=== PATIENT | female | born 1970 | race Caucasian/White ===

== ENCOUNTER 2024-07-30 14:34 | Outpatient (OUT) | payer OTHER, SELFPAY | END 2024-07-30 14:35 | disposition home or self-care (01) | LOC: PST 14:34 | PROVIDERS: Visit Provider Surgery | DX: Z01.818 Encounter for other preprocedural examination (principal); Z12.11 Encounter for screening for malignant neoplasm of colon ==

== ENCOUNTER 2024-08-07 06:34 | Day surgery (SDC) | payer OTHER, SELFPAY ==
--- OUTSIDE RECORDS SUMMARY | 2024-08-07 06:40 | XMS_ITS | CCD ---
Author Organization [facility] Inform ion Partnership [facility] Care Team Providers Care Slackline Operator Name Role Phone Shade Gregg Primary Care Provider VIKKI DAVIDSON Referring Unavailable SHADE GREGG Primary Care Unavailable VIKKI DAVIDSON Referring Unavailable SHADE GREGG Primary Care Unavailable SHADE GREGG Referring Unavailable MARYSOL, SHADE Primary Care Unavailable SHADE GREGG E Attending Unavailable SHADE GREGG E Attending Unavailable SHADE GREGG E Attending Unavailable Medications Current Medications Medication Drug Class(es) Dates Sig (Normalized) Sig (Original) benzonatate 100 mg oral capsule (11 sources) Non-narcotic Antitussive take 1 capsule by mouth three times daily as needed for cough benzonatate (TESSALON) 100 MG capsule Take 100 mg by mouth 3 times daily as needed for Cough 0 Active famotidine 20 mg oral tablet (1 source) Histamine-2 Receptor Antagonist Start: 09-24-2019 take 1 tablet by mouth once daily famotidine (PEPCID) 20 MG tablet Take 1 tablet by mouth nightly 0 09/24/2019 Active ferrous gluconate 324 mg oral tablet (1 source) Start: 02-06-2024 take 1 tablet by mouth once daily at breakfast ferrous gluconate (FERGON) 324 (38 Fe) MG tablet Take 1 tablet by mouth daily (with breakfast) 0 02/06/2024 Active ferrous sulfate 325 mg oral tablet (11 sources) Start: 08-10-2019 Ferrous Sulfate (IRON) 325 (65 Fe) MG TABS fluvoxaMINE maleate 25 mg oral tablet (11 sources) Serotonin Reuptake Inhibitor take 1 tablet by mouth once daily fluvoxaMINE (LUVOX) 25 MG tablet Take 1 tablet by mouth daily 0 Active hydroCHLOROthiazide 25 mg / losartan potassium 100 mg oral tablet (11 sources) Thiazide Diuretic, Angiotensin 2 Receptor Jasiel take 1 tablet by mouth once daily losartan-hydrochl orothiazide (HYZAAR) 100-25 MG per tablet Take 1 tablet by mouth daily 0 Active levothyroxine sodium 0.05 mg oral tablet (1 source) l-Thyroxine Start: 02-02-2024 take 1 tablet by mouth once daily before breakfast levothyroxine (SYNTHROID) 50 MCG tablet Take 1 tablet by mouth every morning (before breakfast) 0 02/02/2024 Active losartan potassium 50 mg oral tablet (1 source) Angiotensin 2 Receptor Jasiel take 1 tablet by mouth once daily losartan (COZAAR) 50 MG tablet Take 1 tablet by mouth daily 0 Active meclizine hydrochloride 25 mg chewable tablet (1 source) Antiemetic Start: 06-14-2023 take 1 tablet by mouth twice daily as needed meclizine (ANTIVERT) 25 MG CHEW Take 1 tablet by mouth 2 times daily as needed 0 06/14/2023 Active meloxicam 15 mg oral tablet (1 source) Nonsteroidal Anti-inflammatory Drug Start: 02-02-2024 End: 02-01-2025 take 1 tablet by mouth once daily meloxicam (MOBIC) 15 MG tablet Take 1 tablet by mouth daily 0 02/02/2024 02/01/2025 Active omeprazole 20 mg delayed release oral capsule (11 sources) Proton Pump Inhibitor take 1 capsule by mouth once daily omeprazole (PRILOSEC) 20 MG delayed release capsule Take 1 capsule by mouth Daily 0 Active raNITIdine 150 mg oral tablet (11 sources) Histamine-2 Receptor Antagonist take 1 tablet by mouth once daily ranitidine (RANITIDINE 150 MAX STRENGTH) 150 MG tablet Take 1 tablet by mouth nightly 0 Active sertraline 50 mg oral tablet (2 sources) Serotonin Reuptake Inhibitor Start: 02-02-2024 End: 02-01-2025 take 1 tablet by mouth once daily sertraline (ZOLOFT) 50 MG tablet Take 1 tablet by mouth daily 0 02/02/2024 02/01/2025 Active Problems Active Problems Problem Classification Problem Date Documented Da te Episodic/Chronic Genitourinary symptoms and ill-defined conditions (11 sources) Urge incontinence of urine; Translations: [Urge incontinence] Onset: 08-28-2019 08-28-2019 Chronic Other connective tissue disease (1 source) Pain of bilateral hands; Translations: [Pain in right hand] Episodic Other non-traumatic joint disorders (2 sources) Pain in right knee; Translations: [Other acute pain] Episodic Other screening for suspected conditions (not mental disorders or infectious disease) (12 sources) Patient encounter status; Translations: [Encounter for screening for malignant neoplasm of colon] Onset: 11-10-2018 Resolved: 01-09-2019 01-09-2019 Episodic Residual codes; unclassified (1 source) Menopause present; Translations: [Asymptomatic menopausal state] Episodic Spondylosis; intervertebral disc disorders; other back problems (1 source) Neck pain; Translations: [Cervicalgia] Episodic Unclassified (3 sources) Patient encounter status; Translations: [Colon cancer screening] Onset: 11-10-2018 Resolved: 01-09-2019 01-09-2019 Past or Other Problems Problem Classification Problem Date Documented Da te Episodic/Chronic Genitourinary symptoms and ill-defined conditions (20 sources) Microscopic hematuria; Translations: [Blood in urine] Onset: 08-21-2019 08-21-2019 Episodic Other gastrointestinal disorders (1 source) Flatulence; Translations: [Flatulence] Onset: 02-10-2024 Episodic Other gastrointestinal disorders (1 source) Gas pain; Translations: [Gas pain] Onset: 02-10-2024 Episodic Other gastrointestinal disorders (1 source) Eructation; Translations: [Eructation] Onset: 02-10-2024 Episodic Residual codes; unclassified (11 sources) Family history of cancer of colon; Translations: [Family history of malignant neoplasm of digestive organs] Onset: 11-10-2018 12-10-2018 Episodic Results Test Name Value Interpretation Reference Range Facility EKG 12 LeadOrdered By: Indra Devries ad on 05-22-2024 Atrial Rate 76 BPM [email or web address] Phone: P [place] 61 degrees [email or web address] Phone: P-R Interval 144 ms [email or web address] Phone: Q-T Interval 386 ms [email or web address] Phone: QRS Duration 86 ms [email or web address] Phone: QTc Calculation (Bazett) 434 ms [email or web address] Phone: R [place] 13 degrees [facility] Work Phone: T [place] 48 degrees MARY GRACE A [employer] Work Phone: Ventricular Rate 76 BPM MARY GRACE GUTIERREZ [employer] Work Phone: MARY GRACE APARICIO [employer] Work Phone: EKG 12 Leadon 05-22-2024 Normal sinus rhythm Low voltage QRS Cannot rule out Anterior infarct , age undetermined Abnormal ECG No previous ECGs available Confirmed by Indra Villalobos MD ([id number]) on 05/22/2024 1:26:33 PM [facility] Indra Villalobos MD - 05/22/2024 Normal sinus rhythm Low voltage QRS Cannot rule out Anterior infarct , age undetermined Abnormal ECG No previous ECGs available Confirmed by Indra Villalobos MD ([id number]) on 05/22/2024 1:26:33 PM [facility] DIGITAL SCREEN BILA Guille 05-22-2024 [facility] K[facility] DIGITAL SCREEN BILATERAL EXAMINATION: SCREENING DIGITAL BILATERAL MAMMOGRAM WITH TOMOSYNTHESIS, 05/22/2024 TECHNIQUE: Screening mammography was performed with tomosynthesis including MLO and CC views of the bilateral breasts. Computer aided detection was used for the interpretation of this exam. COMPARISON: 20 May 2023; 27 April 2022 HISTORY: Screening. Negative family history of breast cancer. No hormone replacement therapy or breast interventions. FINDINGS: Both breasts are composed of scattered fibroglandular density. No skin thickening, nipple contour changes, suspicious calcifications, suspicious masses, areas of architectural distortion or significant interval changes are noted. Stable benign fairly widely distributed calcifications are noted in both breasts. IMPRESSION: No evidence of malignancy. Advise annual screening mammography. BI-RADS 2 BIRADS: BIRADS - CATEGORY 2 Benign Findings. Normal interval follow-up is recommended in 12 months. OVERALL ASSESSMENT - BENIGN A letter of notification will be sent to the patient regarding the results. [employer] recommends annual mammograms for women 40 years and older. Interpreted by: Angi Rico MD Signed by: Angi Rico MD 05/22/24 Final result Normal [facility] H. pylori Antigenon 02-11-20 H. pylori Antigen Specimen Description .FECES Direct Exam NEGATIVE Report Status FINAL 02/11/2024 Normal [facility] Comment on above: Performed By: #### F HPY #### [facility] [address] [place] [address] Respiratory Therapy Director: Xiang Mrcae MD [facility] [address] [place] [address] Respiratory Therapy Director: Jim Mccullough MD [facility] KIANNA DIGITAL SCREEN SELF REFERRAL W OR WO CAD BILATERALon 05-20-2023 No evidence of malignancy. Advise annual screening mammography. BI-RADS 2 BIRADS: BIRADS - CATEGORY 2 Benign Findings. Normal interval follow-up is recommended in 12 months. OVERALL ASSESSMENT - BENIGN A letter of notification will be sent to the patient regarding the results. [employer] recommends annual mammograms for women 40 years and older. [facility] EXAMINATION: SCREENING DIGITAL BILATERAL MAMMOGRAM WITH TOMOSYNTHESIS, 05/20/2023 TECHNIQUE: Screening mammography of the bilateral breasts was performed with tomosynthesis. 2D standard and 3D tomosynthesis combination imaging performed through both breasts in the MLO and CC projection. Computer aided detection was utilized in the interpretation of this exam. COMPARISON: 27 April 2022; 23 April 2021 HISTORY: Screening. Negative family history of breast cancer. No hormonal replacement therapy or breast interventions. FINDINGS: Breasts are composed of scattered fibroglandular density. No skin thickening, nipple contour changes, suspicious calcifications, suspicious masses, areas of architectural distortion or significant interval changes are noted. Stable benign-appearing calcifications are present in the breast. [facility] Radiology Study observation (narrative) [facility] KIANNA DIGITAL SCREEN SELF REFERRAL W OR WO CAD BILATERALOrdered By: Angi Rico on 05-20-2023 [facility] Work Phone: No Panel Informationon 12-10 Cervical spine: 1. Mild degenerative changes in the cervical spine. 2. No acute vertebral body height loss, subluxation, instability or malalignment. Right hand: 1. Mild osteoarthrosis. 2. No acute fracture or dislocation. Left hand: 1. No significant degenerative change. 2. No acute osseous abnormality. Right knee: 1. Small joint effusion. 2. Moderate to severe narrowing of the medial compartment. 3. No acute fracture or dislocation. Left knee: 1. Mild tricompartmental osteoarthrosis. Small joint effusion. 2. No acute fracture or dislocation. [facility] EXAMINATION: TWO XRAY VIEWS OF THE RIGHT HAND; THREE XRAY VIEWS OF THE RIGHT KNEE; THREE XRAY VIEWS OF THE LEFT KNEE; TWO XRAY VIEWS OF THE LEFT HAND; SEVEN XRAY VIEWS OF THE CERVICAL SPINE WITH OBLIQUES AND FLEXION/EXTENSION VIEWS 12/10/2022 11:33 am COMPARISON: None. HISTORY: ORDERING SYSTEM PROVIDED HISTORY: Bilateral hand pain 52-year-old female who complains of bilateral hand pain FINDINGS: Cervical spine: Cervical spine is imaged from the skull base to the inferior C6 vertebral body level on the standard lateral view. Mild disc space narrowing and hypertrophic osteophyte spurring at C4-C5. Mild multilevel facet arthrosis. Inferior C7 vertebral body appears grossly unremarkable on the additional lateral view. No prevertebral soft tissue swelling. No clear evidence for instability or subluxation on flexion extension imaging. No significant foraminal narrowing identified on oblique images. Odontoid appears intact. Lateral masses symmetric in appearance. Visualized ribs and lung apices grossly unremarkable. Right hand: Osseous alignment is normal. Mild degenerative change of the triscaphe and 1st CMC joints. No marginal erosions are identified. No acute fracture or gross dislocation is seen. No focal soft tissue swelling is evident. Left hand: Osseous alignment is normal. Joint spaces relatively well maintained. No marginal erosions are identified. No acute fracture or gross dislocation is seen. No focal soft tissue swelling is evident. Right knee: Small joint effusion. Osseous alignment is normal. Mild tricompartmental osteophyte spurring. Moderate to severe narrowing of the medial compartment. No acute fracture or gross dislocation is seen. No suspicious osteolytic or osteoblastic lesions are identified. Left knee: Small joint effusion. Osseous alignment is normal. Mild tricompartmental osteophyte spurring. No acute fracture or gross dislocation is seen. No suspicious osteolytic or osteoblastic lesions are identified. [facility] Jose Francisco Robertson MD - 12/10/2022 EXAMINATION: TWO XRAY VIEWS OF THE RIGHT HAND; THREE XRAY VIEWS OF THE RIGHT KNEE; THREE XRAY VIEWS OF THE LEFT KNEE; TWO XRAY VIEWS OF THE LEFT HAND; SEVEN XRAY VIEWS OF THE CERVICAL SPINE WITH OBLIQUES AND FLEXION/EXTENSION VIEWS 12/10/2022 11:33 am COMPARISON: None. HISTORY: ORDERING SYSTEM PROVIDED HISTORY: Bilateral hand pain 52-year-old female who complains of bilateral hand pain FINDINGS: Cervical spine: Cervical spine is imaged from the skull base to the inferior C6 vertebral body level on the standard lateral view. Mild disc space narrowing and hypertrophic osteophyte spurring at C4-C5. Mild multilevel facet arthrosis. Inferior C7 vertebral body appears grossly unremarkable on the additional lateral view. No prevertebral soft tissue swelling. No clear evidence for instability or subluxation on flexion extension imaging. No significant foraminal narrowing identified on oblique images. Odontoid appears intact. Lateral masses symmetric in appearance. Visualized ribs and lung apices grossly unremarkable. Right hand: Osseous alignment is normal. Mild degenerative change of the triscaphe and 1st CMC joints. No marginal erosions are identified. No acute fracture or gross dislocation is seen. No focal soft tissue swelling is evident. Left hand: Osseous alignment is normal. Joint spaces relatively well maintained. No marginal erosions are identified. No acute fracture or gross dislocation is seen. No focal soft tissue swelling is evident. Right knee: Small joint effusion. Osseous alignment is normal. Mild tricompartmental osteophyte spurring. Moderate to severe narrowing of the medial compartment. No acute fracture or gross dislocation is seen. No suspicious osteolytic or osteoblastic lesions are identified. Left knee: Small joint effusion. Osseous alignment is normal. Mild tricompartmental osteophyte spurring. No acute fracture or gross dislocation is seen. No suspicious osteolytic or osteoblastic lesions are identified. IMPRESSION: Cervical spine: 1. Mild degenerative changes in the cervical spine. 2. No acute vertebral body height loss, subluxation, instability or malalignment. Right hand: 1. Mild osteoarthrosis. 2. No acute fracture or dislocation. Left hand: 1. No significant degenerative change. 2. No acute osseous abnormality. Right knee: 1. Small joint effusion. 2. Moderate to severe narrowing of the medial compartment. 3. No acute fracture or dislocation. Left knee: 1. Mild tricompartmental osteoarthrosis. Small joint effusion. 2. No acute fracture or dislocation. [email or web address] Phone: Radiology Study observation (narrative) [email or web address] Phone: No Panel InformationOrdered By: Jose Francisco Robertson on 12-10-2022 [email or web address] Phone: XR CERVICAL SPINE W OBLIQUES FLEXION AND EXTENSIONon 12-10-2022 Radiology Study observation (narrative) [email or web address] Phone: XR KNEE RIGHT (3 VIEWS)on Radiology Study observation (narrative) [email or web address] Phone: [facility] KIANNA DIGITAL SCREEN BILA TERALon 04-27-2022 No mammographic evidence of malignancy BIRADS: BIRADS - CATEGORY 2 Benign Findings. Normal interval follow-up is recommended in 12 months. OVERALL ASSESSMENT - BENIGN A letter of notification will be sent to the patient regarding the results. [employer] recommends annual mammograms for women 40 years and older. [facility] EXAMINATION: SCREENING DIGITAL BILATERAL MAMMOGRAM WITH TOMOSYNTHESIS, 04/27/2022 TECHNIQUE: Screening mammography was performed with tomosynthesis including MLO and CC views of the bilateral breasts. Computer aided detection was used for the interpretation of this exam. COMPARISON: April 23, 2021 and April 02, 2020 HISTORY: Screening. FINDINGS: Breasts are composed of scattered fibroglandular density. There is no dominant mass, architectural distortion or concerning grouping of microcalcification in either breast. Benign-appearing calcifications are stable. [facility] Radiology Study observation (narrative) [email or web address] Phone: [facility] KIANNA DIGITAL SCREEN BILA TERALOrdered By: Rex Rogers on 04-27-2022 [email or web address] Phone: Complete Blood Count with Au to Diffon 12-07-2021 Basophils (Bld) [#/Vol] 0.03 10*3/uL Normal 0.00-0.20 [facility] Comment on above: Performed By: #### C BCAD, TSH reflex FT4, LIPD, CMP #### [facility] [address] [place], [place] [id number] Basophils/100 WBC (Bld) 0.6 % Normal [facility] Comment on above: Performed By: #### C BCAD, TSH reflex FT4, LIPD, CMP #### [facility] [address] [place], [place] [id number] Eosinophils (Bld) [#/Vol] 0.11 10*3/uL Normal 0.02-0.50 [facility] Specialist Comment on above: Performed By: #### C BCAD, TSH reflex FT4, LIPD, CMP #### [facility] [address] [place], [place] [id number] Eosinophils/100 WBC (Bld) 2.3 % Normal [facility] Special[facility] Comment on above: Performed By: #### C BCAD, TSH reflex FT4, LIPD, CMP #### [facility] [address] [place], [place] [id number] Erythrocyte distribution width (RBC) [Ratio] 13.6 % Normal 11.0-15.0 [facility] Comment on above: Performed By: #### C BCAD, TSH reflex FT4, LIPD, CMP #### [facility] [address] [place], [place] [id number] Hematocrit (Bld) [Volume fraction] 41.6 % Normal 35.0-47.0 [facility] Comment on above: Performed By: #### C BCAD, TSH reflex FT4, LIPD, CMP #### [facility] [address] [place], [place] [id number] Hemoglobin (Bld) [Mass/Vol] 13.4 g/dL Normal 11.6-15.5 [facility] Comment on above: Performed By: #### C BCAD, TSH reflex FT4, LIPD, CMP #### [facility] [address] [place], [place] [id number] Lymphocytes (Bld) [#/Vol] 1.2 10*3/uL Normal 0.9-3.9 [facility] Comment on above: Performed By: #### C BCAD, TSH reflex FT4, LIPD, CMP #### [facility] [address] [place], [place] [id number] Lymphocytes/100 WBC (Bld) 24.7 % Normal [facility] Specialist Comment on above: Performed By: #### C BCAD, TSH reflex FT4, LIPD, CMP #### [facility] [address], [place] [id number] MCH (RBC) [Entitic mass] 28.5 pg Normal 27.0-33.0 [facility] Comment on above: Performed By: #### C BCAD, TSH reflex FT4, LIPD, CMP #### [facility] [address], [place] [id number] MCHC (RBC) [Mass/Vol] 32.2 g/dL Normal 32.0-36.0 [facility] Comment on above: Performed By: #### C BCAD, TSH reflex FT4, LIPD, CMP #### [facility] [address] [place], [place] [id number] MCV (RBC) [Entitic vol] 89 fL Normal 80-100 [facility] Specialist Comment on above: Performed By: #### C BCAD, TSH reflex FT4, LIPD, CMP #### [facility] [address] [place], [place] [id number] Monocytes (Bld) [#/Vol] 0.5 10*3/uL Normal 0.2-0.9 [facility] Comment on above: Performed By: #### C BCAD, TSH reflex FT4, LIPD, CMP #### [facility] [address], [place] [id number] Monocytes/100 WBC (Bld) 10.5 % Normal [facility] Comment on above: Performed By: #### C BCAD, TSH reflex FT4, LIPD, CMP #### [facility] [address], [place] [id number] Neutrophils (Bld) [#/Vol] 3.0 10*3/uL Normal 1.5-7.8 [facility] Comment on above: Performed By: #### C BCAD, TSH reflex FT4, LIPD, CMP #### [facility] [address] [place], [place] [id number] Neutrophils/100 WBC (Bld) 61.9 % Normal [facility] Comment on above: Performed By: #### C BCAD, TSH reflex FT4, LIPD, CMP #### [facility] [address] [place], [place] [id number] Platelet mean volume (Bld) [Entitic vol] 9.50 fL Normal 7.50-12.50 [facility] Specialist Comment on above: Performed By: #### C BCAD, TSH reflex FT4, LIPD, CMP #### [facility] [address] [place], [place] [id number] Platelets (Bld) [#/Vol] 330 10*3/uL Normal 140-400 [facility] Specialist Comment on above: Performed By: #### C BCAD, TSH reflex FT4, LIPD, CMP #### [facility] [address] [place], [place] [id number] RBC (Bld) [#/Vol] 4.70 10*6/uL Normal 3.90-5.20 [facility] Specialist Comment on above: Performed By: #### C BCAD, TSH reflex FT4, LIPD, CMP #### [facility] [address] [place], [place] [id number] RDW-SD 44.2 fL Normal 37.0-50.0 [facility] Specialist Comment on above: Performed By: #### C BCAD, TSH reflex FT4, LIPD, CMP #### [facility] [address] [place], [place] [id number] WBC (Bld) [#/Vol] 4.8 10*3/uL Normal 3.8-11.0 [facility] Comment on above: Performed By: #### C BCAD, TSH reflex FT4, LIPD, CMP #### [facility] [address] [place] [place], [place] [id number] [facility] 12-07-2021 Albumin [Mass/Vol] 4.3 g/dL Normal 3.6-5.1 [facility] Comment on above: Performed By: #### C BCAD, TSH reflex FT4, LIPD, CMP #### [facility] [address] [place], [place] [id number] Albumin/Globulin [Mass ratio] 1.5 {ratio} Normal 1.0-2.5 [facility] Comment on above: Performed By: #### C BCAD, TSH reflex FT4, LIPD, CMP #### [facility] [address] [place], [place] [id number] ALP [Catalytic activity/Vol] 72 U/L Normal 35-119 [facility] Specialist Comment on above: Performed By: #### C BCAD, TSH reflex FT4, LIPD, CMP #### [facility] [address] [place], [place] [id number] ALT [Catalytic activity/Vol] 17 U/L Normal 6-33 [facility] Specialist Comment on above: Result Comment: 09/23 Female reference range changed. Performed By: #### C BCAD, TSH reflex FT4, LIPD, CMP #### [facility] [address] [place], [place] [id number] Anion gap [Moles/Vol] 17 mmol/L Normal 12-20 [facility] Comment on above: Result Comment: Effe ctive 10/29/2019 reference range changed. Performed By: #### C BCAD, TSH reflex FT4, LIPD, CMP #### [facility] [address] [place], [place] [id number] AST [Catalytic activity/Vol] 20 U/L Normal 9-34 [facility] Comment on above: Performed By: #### C BCAD, TSH reflex FT4, LIPD, CMP #### [facility] [address] [place], [place] [id number] Bilirubin [Mass/Vol] 0.60 mg/dL Normal 0.30-1.20 [facility] Comment on above: Performed By: #### C BCAD, TSH reflex FT4, LIPD, CMP #### [facility] [address] [place], [place] [id number] BUN/CREA 31 Ratio High 6-22 [facility] Comment on above: Performed By: #### C BCAD, TSH reflex FT4, LIPD, CMP #### [facility] [address] [facility] [place] [id number] Calcium [Mass/Vol] 9.4 mg/dL Normal 8.6-10.2 [facility] Comment on above: Performed By: #### C BCAD, TSH reflex FT4, LIPD, CMP #### [facility] [address], [place] [id number] Chloride [Moles/Vol] 100 mmol/L Normal 98-107 [facility] Comment on above: Performed By: #### C BCAD, TSH reflex FT4, LIPD, CMP #### [facility] [address] [place], [place] [id number] CO2 [Moles/Vol] 27 mmol/L Normal 20-31 [facility] Comment on above: Performed By: #### C BCAD, TSH reflex FT4, LIPD, CMP #### [facility] [address], [place] [id number] Creatinine [Mass/Vol] 0.6 mg/dL Normal 0.6-1.4 [facility] Comment on above: Performed By: #### C BCAD, TSH reflex FT4, LIPD, CMP #### [facility] [address] [place], [place] [id number] eGFRAA 132 mL/min/1.73m2 Normal >60 [facility] Comment on above: Performed By: #### C BCAD, TSH reflex FT4, LIPD, CMP #### [facility] [address] [place], [place] [id number] eGFRNAA 109 mL/min/1.73m2 Normal >60 [facility] [facility] Comment on above: Performed By: #### C BCAD, TSH reflex FT4, LIPD, CMP #### [facility] [address] [place], [place] [id number] Globulin (S) [Mass/Vol] 2.8 g/dL Normal 1.9-3.7 [facility] Comment on above: Performed By: #### C BCAD, TSH reflex FT4, LIPD, CMP #### [facility] [address], [place] [id number] Glucose [Mass/Vol] 85 mg/dL Normal 65-99 [facility] Comment on above: Result Comment: For FASTING Glucose --- ADA reference ranges: Normal 65-99 mg/dl Prediabetes 100-125 Diabetes >/= 126 Performed By: #### C BCAD, TSH reflex FT4, LIPD, CMP #### [facility] [address] [facility] [place] [id number] Potassium [Moles/Vol] 4.1 mmol/L Normal 3.5-5.5 [facility] [place] Comment on above: Performed By: #### C BCAD, TSH reflex FT4, LIPD, CMP #### [facility] [address] [place] [id number] Protein [Mass/Vol] 7.1 g/dL Normal 6.1-8.1 [facility] Comment on above: Performed By: #### C BCAD, TSH reflex FT4, LIPD, CMP #### [facility] [address] [facility] [place] [id number] Sodium [Moles/Vol] 139 mmol/L Normal 135-146 [facility] Specialist Comment on above: Performed By: #### C BCAD, TSH reflex FT4, LIPD, CMP #### [facility] [address], [place] [id number] Urea nitrogen [Mass/Vol] 18 mg/dL Normal 7-25 [facility] Specialist Comment on above: Performed By: #### C BCAD, TSH reflex FT4, LIPD, CMP #### [facility] [address], [place] [id number] Hemoglobin A1Con 12-07-[address] [facility] Comment on above: Performed By: #### A 1C #### [facility] [address], [place] [id number] HbA1c (Bld) [Mass fraction] 5.3 % Normal 4.0-6.0 [facility] Specialist Comment on above: Performed By: #### A 1C #### [facility] [address], [place] [id number] Lipid Panelon 12-07-2021 Cholesterol [Mass/Vol] 142 mg/dL Normal 125-200 [facility] Comment on above: Result Comment: Low risk < 200mg/dL Borderline risk 201-239 mg/dl High risk > or equal to 240 Performed By: #### C BCAD, TSH reflex FT4, LIPD, CMP #### [facility] [address], [place] [id number] Cholesterol in HDL [Mass/Vol] 88 mg/dL Normal >40 [facility] St[facility]cher Comment on above: Result Comment: High Cardiovascular Risk HDL <40 mg/dL Low Cardiovascular Risk HDL > or equal to 60 mg/dl Performed By: #### C BCAD, TSH reflex FT4, LIPD, CMP #### [facility] [address], [place] [id number] Cholesterol in LDL [Mass/Vol] 48 mg/dL Normal [facility] Specialist Comment on above: Result Comment: LDL ATP III CLASSIFICATION LDL less than 100 mg/dl Optimal LDL 100-129 mg/dl Near or above optimal LDL 130-159 Borderline high LDL 160-189 High LDL greater than 189 mg/dl Very High Performed By: #### C BCAD, TSH reflex FT4, LIPD, CMP #### [facility] [address], [place] [id number] Cholesterol in VLDL [Mass/Vol] 6 mg/dL Normal [facility] Specialist Comment on above: Performed By: #### C BCAD, TSH reflex FT4, LIPD, CMP #### [facility] [address], [place] [id number] Cholesterol.total/Chol esterol in HDL [Mass ratio] 2 {ratio} Normal [facility] Specialist Comment on above: Performed By: #### C BCAD, TSH reflex FT4, LIPD, CMP #### [facility] [address], [place] [id number] Triglyceride [Mass/Vol] 32 mg/dL Normal 30-150 [facility] Comment on above: Result Comment: TRIG ATPIII CLASSIFICATIONS TRIG less than 150 mg/dl Normal TRIG 150-199 mg/dl Borderline High TRIG 200-500 mg/dl High TRIG greather than 500 mg/dl Very High Performed By: #### C BCAD, TSH reflex FT4, LIPD, CMP #### [facility] [address], [place] [id number] Microalbumin (with Creat)on 12-07-2021 mALB <1.2 Low [facility] Specialist Comment on above: Result Comment: Unab le to calculate mALB/Crea ratio, mALB is <1.2 mg/dL mALB reference range not established. Performed By: #### m ALBC #### [facility] [address] [place] [id number] UCREA 92 mg/dL Normal 28-217 [facility] Stitcher Comment on above: Performed By: #### m ALBC #### [facility] [address], [place] [id number] Q - UR CULT REFLEXon 022 REFLEXIVE URINE CULTURE SEE NOTE Normal [facility] Comment on above: Order Comment: [facility] performed at: [employer] [facility], [address], [address] [place] [address], [address] [place] [address], Lay Out Worker: Nicola Gomez MD [facility] Date/Time: [facility] Results Received Date/Time: [facility] Reported Date/Time: FASTING: UNKNOWN Result Comment: NO C ULTURE INDICATED Performed By: #### 3 020X, %SBNOCULI #### [facility] Default [address] [place] [address] Q - URINALYSIS,COMPLETE,WITH REFLEX TO CULTUREon 12-07-2021 Appearance (U) CLEAR Normal CLEAR [facility] Wire Stitcher Comment on above: Order Comment: [facility] performed at: [facility], [address], [address] [place] [address], [address] [place] [address], Lay Out Worker: Nicola Gomez MD [facility] Date/Time: [facility] Results Received Date/Time: [facility] Reported Date/Time: FASTING: UNKNOWN Performed By: #### 3 020X, %SBNOCULI #### [facility] [address] [place] [address] BACTERIA NONE SEEN Normal NONE SEEN [facility] Comment on above: Order Comment: [facility] performed at: [facility], [address], [address] [place] [address], [address] [place] [address], Lay Out Worker: Nicola Gomez MD [facility] Date/Time: [facility] Results Received Date/Time: [facility] Reported Date/Time: FASTING: UNKNOWN Performed By: #### 3 020X, %SBNOCULI #### [facility] [address] [place] [address] Bilirubin Ql (U) Negative Normal NEGATIVE [facility] Specialist Comment on above: Order Comment: [facility] performed at: [employer] [facility], [address] , [address] [place] [address], [address] [place] [address], Lay Out Worker: Nicola Gomez MD [facility] Date/Time: [facility] Results Received Date/Time: [facility] Reported Date/Time: FASTING: UNKNOWN Performed By: #### 3 020X, %SBNOCULI #### [facility] [address] [place] [address] Color (U) YELLOW Normal YELLOW [facility] Comment on above: Order Comment: [facility] performed at: [employer] [facility], [address] [place] [address], [address] [place] [address], [address] [place] [address], Lay Out Worker: Nicola Gomez MD [facility] Date/Time: [facility] Results Received Date/Time: [facility] Reported Date/Time: FASTING: UNKNOWN Performed By: #### 3 020X, %SBNOCULI #### [facility] [address] [place] [address] Glucose Ql (U) Negative Normal NEGATIVE [facility] Specialist Comment on above: Order Comment: [facility] performed at: [employer] [facility], [address], [address] [place] [address], [address] [place] [address], Lay Out Worker: Nicola Gomez MD [facility] Date/Time: [facility] Results Received Date/Time: [facility] Reported Date/Time: FASTING: UNKNOWN Performed By: #### 3 020X, %SBNOCULI #### [facility] [address] [place] [address] HYALINE CAST NONE SEEN Normal NONE SEEN [facility] Wire Stitcher Comment on above: Order Comment: [facility] performed at: [employer] [facility], [address] , [address] [place] [address], [phone], Lay Out Worker: Nicola Gomez MD [facility] Date/Time: [facility] Results Received Date/Time: [facility] Reported Date/Time: FASTING: UNKNOWN Performed By: #### 3 020X, %SBNOCULI #### [facility] [address] [place] [address] Ketones Ql (U) Negative Normal NEGATIVE [facility] Wire Stitcher Comment on above: Order Comment: [facility] performed at: [employer] [facility], [address] [place] [address], [address] [place] [address], [phone], Lay Out Worker: Nicola Gomez MD [facility] Date/Time: [facility] Results Received Date/Time: [facility] Reported Date/Time: FASTING: UNKNOWN Performed By: #### 3 020X, %SBNOCULI #### [facility] [address] [place] [address] Leukocyte esterase Test strip Ql (U) Negative Normal NEGATIVE [facility] Wire St[facility]cher Comment on above: Order Comment: [facility] performed at: [employer] [facility], [address], [address] [place] [address], [phone], Lay Out Worker: Nicola Gomez MD [facility] Date/Time: [facility] Results Received Date/Time: [facility] Reported Date/Time: FASTING: UNKNOWN Performed By: #### 3 020X, %SBNOCULI #### [facility] [address] [place] [address] Nitrite Ql (U) Negative Normal NEGATIVE [facility] Wire Stitcher Comment on above: Order Comment: [facility] performed at: [employer] [facility], [address], [address] [place] [address], [phone], Lay Out Worker: Nicola Gomez MD [facility] Date/Time: [facility] Results Received Date/Time: [facility] Reported Date/Time: FASTING: UNKNOWN Performed By: #### 3 020X, %SBNOCULI #### [facility] [address] [place] [address] OCCULT BLOOD Negative Normal NEGATIVE [facility] Wire Stitcher Comment on above: Order Comment: [facility] performed at: [employer] [facility], [address], [address] [place] [address], [address] [place] [address], Lay Out Worker: Nicola Gomez MD [facility] Date/Time: [facility] Results Received Date/Time: [facility] Reported Date/Time: FASTING: UNKNOWN Performed By: #### 3 020X, %SBNOCULI #### [facility] [address] [place] [address] pH (U) 7.5 [pH] Normal 5.0-8.0 [facility] Wire Stitcher Comment on above: Order Comment: [facility] performed at: [employer] [facility], [address], [address] [place] [address], [address] [place] [address], Lay Out Worker: Nicola Gomez MD [facility] Date/Time: [facility] Results Received Date/Time: [facility] Reported Date/Time: FASTING: UNKNOWN Performed By: #### 3 020X, %SBNOCULI #### [facility] [address] [place] [address] Protein Ql (U) Negative Normal NEGATIVE [facility] Wire Stitcher Comment on above: Order Comment: [facility] performed at: [employer] [facility], [address], [address] [place] [address], [address] [place] [address], Lay Out Worker: Nicola Gomez MD [facility] Date/Time: [facility] Results Received Date/Time: [facility] Reported Date/Time: FASTING: UNKNOWN Performed By: #### 3 020X, %SBNOCULI #### [facility] [address] [place] [address] RBC 0-2 Normal < OR = 2 [facility] Wire Stitcher Comment on above: Order Comment: [facility] performed at: [employer] [facility], [address] [place] [address], [address] [place] [address], [address] [place] [address], Lay Out Worker: Nicola Gomez MD [facility] Date/Time: [facility] Results Received Date/Time: [facility] Reported Date/Time: FASTING: UNKNOWN Performed By: #### 3 020X, %SBNOCULI #### [facility] [address] [place] [address] Specific gravity (U) [Rel density] 1.019 Normal 1.001-1.035 [facility] Wire Stitcher Comment on above: Order Comment: [facility] performed at: [employer] [facility], [address] [place] [address], [address] [place] [address], [address] [place] [address], Lay Out Worker: Nicola Gomez MD [facility] Date/Time: [facility] Results Received Date/Time: [facility] Reported Date/Time: FASTING: UNKNOWN Performed By: #### 3 020X, %SBNOCULI #### [facility] [address] [place] [address] SQUAMOUS EPITHELIAL CELLS NONE SEEN Normal < OR = 5 [facility] Wire Stitcher Comment on above: Order Comment: [facility] performed at: [employer] [facility], [address] [place] [address], [address] [place] [address], [address] [place] [address], Lay Out Worker: Nicola Gomez MD [facility] Date/Time: [facility] Results Received Date/Time: [facility] Reported Date/Time: FASTING: UNKNOWN Performed By: #### 3 020X, %SBNOCULI #### [facility] [address] [place] [address] WBC NONE SEEN Normal < OR = 5 [facility] Wire Stitcher Comment on above: Order Comment: [facility] performed at: [employer] [facility], [address] [place] [address], [address] [place] [address], [phone], Lay Out Worker: Nicola Gomez MD [facility] Date/Time: [facility] Results Received Date/Time: [facility] Reported Date/Time: FASTING: UNKNOWN Performed By: #### 3 020X, %SBNOCULI #### [facility] [address] [place] [address] TSH w/ Reflex to Free T4on 0 12-07-2021 TSH 2.350 uIU/mL Normal 0.400-4.500 [facility] Wire Stitcher Comment on above: Performed By: #### C BCAD, TSH reflex FT4, LIPD, CMP #### [facility] [address] [place], [place] [id number] DEXA BONE DENSITY AXIAL SKEL ETONOrdered By: Shade Gregg on 04-23-2021 Normal bone mineral density by WHO criteria. [employer] Phone: EXAMINATION: BONE DENSITOMETRY 04/23/2021 12:38 pm TECHNIQUE: A bone density dual x-ray absorptiometry (DEXA) scan was performed of the lumbar spine and left hip on a [employer] system. COMPARISON: None. HISTORY: ORDERING SYSTEM PROVIDED HISTORY: Menopause TECHNOLOGIST PROVIDED HISTORY: Is the patient ?->No FINDINGS: LUMBAR SPINE: The bone mineral density in the lumbar spine including the L1-4 levels is measured at 1.527 g/cm2, which corresponds to a T-score of 2.9 and a Z-score of 2.5. This is within the normal range by WHO criteria. LEFT HIP: The bone mineral density in the total hip is measured at 1.222 g/cm2 corresponding to a T-score of 1.7 and a Z-score of 1.5. This is within the normal range by WHO criteria. The bone mineral density of the femoral neck is measured at 1.034 g/cm2 corresponding to a T-score of 0.0 and a Z-score of 0.2. This is within the normal range by WHO criteria. [employer] Phone: [place], Mhpn Incoming Radiant Results From [email or web address] - 04/23/2021 2:47 PM EDT EXAMINATION: BONE DENSITOMETRY 04/23/2021 12:38 pm TECHNIQUE: A bone density dual x-ray absorptiometry (DEXA) scan was performed of the lumbar spine and left hip on a [employer] system. COMPARISON: None. HISTORY: ORDERING SYSTEM PROVIDED HISTORY: Menopause TECHNOLOGIST PROVIDED HISTORY: Is the patient ?->No FINDINGS: LUMBAR SPINE: The bone mineral density in the lumbar spine including the L1-4 levels is measured at 1.527 g/cm2, which corresponds to a T-score of 2.9 and a Z-score of 2.5. This is within the normal range by WHO criteria. LEFT HIP: The bone mineral density in the total hip is measured at 1.222 g/cm2 corresponding to a T-score of 1.7 and a Z-score of 1.5. This is within the normal range by WHO criteria. The bone mineral density of the femoral neck is measured at 1.034 g/cm2 corresponding to a T-score of 0.0 and a Z-score of 0.2. This is within the normal range by WHO criteria. IMPRESSION: Normal bone mineral density by WHO criteria. [employer] Work Phone: [employer] Phone: THAD DIGITAL SCREEN W OR WO C AD BILATERALon 04-02-2020 No mammographic evidence for malignancy. BIRADS: BIRADS - CATEGORY 1 Negative, no evidence of malignancy. Normal interval follow-up is recommended in 12 months. OVERALL ASSESSMENT - NEGATIVE A letter of notification will be sent to the patient regarding the results. [employer] recommends annual mammograms for women 40 years and older. [employer] TNRHONDA EXAMINATION: SCREENING DIGITAL BILATERAL MAMMOGRAM WITH TOMOSYNTHESIS, 04/02/2020 2:04 pm TECHNIQUE: Screening mammography of the bilateral breasts was performed with tomosynthesis. 2D standard and 3D tomosynthesis combination imaging performed through both breasts in the MLO and CC projection. Computer aided detection was utilized in the interpretation of this exam. COMPARISON: December 25, 2018. HISTORY: Screening. FINDINGS: There are scattered areas of fibroglandular density. There is no new dominant mass, suspicious microcalcification, or area of architectural distortion. [employer] TNRHONDA [place], Mhpn Incoming Radiant Results From [email or web address] - 04/02/2020 2:21 PM EDT EXAMINATION: SCREENING DIGITAL BILATERAL MAMMOGRAM WITH TOMOSYNTHESIS, 04/02/2020 2:04 pm TECHNIQUE: Screening mammography of the bilateral breasts was performed with tomosynthesis. 2D standard and 3D tomosynthesis combination imaging performed through both breasts in the MLO and CC projection. Computer aided detection was utilized in the interpretation of this exam. COMPARISON: December 25, 2018. HISTORY: Screening. FINDINGS: There are scattered areas of fibroglandular density. There is no new dominant mass, suspicious microcalcification, or area of architectural distortion. IMPRESSION: No mammographic evidence for malignancy. BIRADS: BIRADS - CATEGORY 1 Negative, no evidence of malignancy. Normal interval follow-up is recommended in 12 months. OVERALL ASSESSMENT - NEGATIVE A letter of notification will be sent to the patient regarding the results. [employer] recommends annual mammograms for women 40 years and older. [place], [place] Urinalysis with Microscopico n 08-28-2019 Amorphous, UA NOT REPORTED None [place], [place] Bacteria, UA 2+ Abnormal None [place], [place] Bilirubin Urine Negative NEGATIVE [place] Casts UA NOT REPORTED /LPF [place] Color, UA YELLOW YELLOW [place] Crystals UA NOT REPORTED None /HPF [place], [place] Epithelial Cells UA 0 TO 2 [place] Glucose, Ur Negative NEGATIVE [place] Interpretation and review of laboratory results Abnormal [place] Ketones Ql (U) Negative NEGATIVE [place], [place] Leukocyte esterase Test strip Ql (U) SMALL Abnormal NEGATIVE [place] Mucus, UA NOT REPORTED None [place] Nitrite, Urine Negative NEGATIVE [place], [place] Other Observations UA NOT REPORTED NOT REQ. M [place], [place] pH, UA 6.5 [place] Protein (U) [Mass/Vol] Negative NEGATIVE [place], [place] RBC (U) [#/Vol] 0 TO 2 [place], [place] Renal Epithelial, Urine NOT REPORTED 0 /HPF [facility] [place] Specific [place], UA 1.010 [facility] Trichomonas, UA NOT REPORTED None [facility] [place] Turbidity UA CLEAR CLEAR [facility] [place] Urinalysis Comments NOT REPORTED [facility] Urine Hgb Negative NEGATIVE [facility] [place] Urobilinogen, Urine Normal Normal [facility] WBC, UA 0 TO 2 [facility] [place] Yeast, UA NOT REPORTED None [facility] [place] - [facility] Encounters Encounter Date Encounter Type Care Provider Facility Start: 06-28-2024 End: 06-28-2024 ambulatory SHADE Bliss FRUDERREK Not Available Start: 05-22-2024 Encounter for other preprocedural examination [facility] Start: 05-22-2024 End: 05-22-2024 Patient encounter status Shade Chavez NP Work Phone: [facility] Start: 05-22-2024 End: 05-22-2024 Subsequent hospital visit by physician Shade Chavez NP Work Phone: [facility] EKG Comment on above: Pre-op testing Start: 05-22-2024 End: 05-24-2024 ambulatory SHADE GREGG [facility] Start: 02-10-2024 End: 02-10-2024 ambulatory VIKKI [facility] Start: 02-02-2024 End: 02-02-2024 ambulatory SHADE E FRUTH Not Available Start: 10-13-2023 End: 10-13-2023 ambulatory SHADE E FRUTH Not Available Start: 05-20-2023 End: 05-22-2023 Subsequent hospital visit by physician [facility] Mammography Comment on above: Breast cancer screen ing by mammogram Start: 12-10-2022 End: 12-12-2022 Subsequent hospital visit by physician Mars [address] Room 4 [facility] Comment on above: Acute pain of both k nees Cervicalgia Bilateral hand pain Start: 04-27-2022 End: 04-29-2022 Subsequent hospital visit by physician [facility] Mammography Comment on above: Screening breast exa mination Start: 04-23-2021 End: 04-25-2021 Subsequent hospital visit by physician [facility] Mammography Comment on above: Menopause Start: 04-02-2020 End: 04-04-2020 Subsequent hospital visit by physician [facility] Mammography Room At [facility] Mammography Comment on above: Screening breast exa mination Start: 08-28-2019 End: 08-28-2019 Subsequent hospital visit by physician Shade Gregg [facility] Laboratory Comment on above: Microscopic hematuri a Procedures Date Procedure Procedure Detail Performing Clinician Start: 05-22-2024 Ecg routine ecg w/le ast 12 lds w/i&r Vikki aDvidson E M [employer] Work Phone: Start: 05-20-2023 Screening mammograph y bi 2-view breast inc cad Shade Gregg Work Phone: Start: 12-10-2022 End: 12-10-2022 Radiologic examination knee 3 views Shade [employer] Work Phone: Start: 04-27-2022 Screening mammograph y bi 2-view breast inc cad Shade [employer] Work Phone: Start: 04-23-2021 Dxa bone density radha dy 1/> sites axial skel Shade [employer] Work Phone: Start: 04-02-2020 Screening digital br east tomosynthesis bi Shade [employer] Other Phone: Start: 08-28-2019 Urnls dip stick/tabl et reagent auto microscopy Cynthia Geiger Work Phone: Start: 12-11-2018 Colonoscopy [facility] Plan of Treatment Date Care Activity Detail Author Start: 05-20-2025 Screening for malignant neoplasm of breast Breast cancer screen [facility] Start: 07-05-2024 End: 07-05-2024 Admission to same day surgery center 07/05/2024 11:50 AM EDT - 07/05/2024 12:45 PM EDT Surgery [facility] OR [address] [place] [address] Karen Trammell MD [address] [place], [place] [id number] COLORECTAL CANCER SCREENING, NOT HIGH RISK [facility] OR Comment on above: COLORECTAL CANCER SCREENING, NOT HIGH RI SK Start: 07-05-2024 End: 07-05-2024 Colon ca scrn not hi rsk ind COLORECTAL CANCER SCREENI NG, NOT HIGH RISK Anemia, unspecified type 07/05/2024 11:50 AM [address]T [facility] Start: 07-05-2024 End: 07-05-2024 Esophagogastroduodenoscopy transoral diagnostic ESOPHAGOGASTRODUODENOSCOPY Anemia, unspecified type 07/05/2024 11:50 AM EDT [facility] Start: 07-05-2024 Subsequent hospital visit by physician 07/05/2024 11:50 AM EDT Hospital Encounter [facility] OR [address] [place] [address] Karen Trammell MD [address] [place], [place] [id number] [facility] OR Start: 05-24-2024 Influenza vaccination Flu vaccine (#1) [facility] Start: 04-27-2024 Screening for malignant neoplasm of breast Breast cancer screen [facility] Start: 12-11-2023 Colon cancer screen colonoscopy Colon cancer screen colonoscopy [place] Start: 12-11-2023 Screening for malignant neoplasm of colon [facility] Start: 10-06-2023 Lipid panel [facility] Start: 10-06-2023 Lipid screen Lipid screen [place], [place] Start: 06-24-2023 COVID-19 Vaccine ( season) COVID-19 Vaccine ( season) [facility] Start: 05-24-2023 Influenza vaccination Flu vaccine (#1) [facility] Start: 04-23-2023 Screening for malignant neoplasm of breast Breast cancer screen [facility] Work Phone: Start: 06-24-2022 Influenza vaccination Flu vaccine (#1) [facility] Start: 04-02-2022 Screening for malignant neoplasm of breast Breast cancer screen [place], [place] Start: 06-24-2021 Influenza vaccination Flu vaccine (#1) [facility] [employer] Phone: Start: 12-25-2020 Breast cancer screen Breast cancer screen [place], [place] Start: 06-24-2020 Influenza vaccination Flu vaccine (Season Ended) [place] Start: 10-06-2019 Creatinine measurement Creatinine monitoring [place], [place] Start: 10-06-2019 Creatinine monitoring Creatinine monitoring [place] Start: 10-06-2019 Potassium monitoring Potassium monitoring [place] Start: 06-24-2019 Influenza vaccination Flu vaccine (#1) [place] Start: 2019 Shingles Vaccine (1 of 2) Shingles Vaccine (1 of 2) [facility] Start: 2014 Screening for malignant neoplasm of colon [facility] Start: 2004 Diabetes screen Diabetes screen [facility] Start: 1999 Screening for malignant neoplasm of cervix [facility] Start: 1990 Cervical cancer screen Cervical cancer screen [place], [place] Start: 1990 Screening for malignant neoplasm of cervix [facility] Start: 1988 DTaP/Tdap/Td vaccine (1 - Tdap) DTaP/Tdap/Td vaccine ( 1 - Tdap) [facility] Start: 1987 Hepatitis C screening Hepatitis C screen [facility] Start: 1984 HIV screen HIV screen [place], [place] Start: 1984 HIV screening HIV screen [facility] Start: 1981 COVID-19 Vaccine (1) COVID-19 Vaccine (1) [facility] [employer] Phone: Start: 1981 Depression Screen Depression Screen [facility] Start: 1974 COVID-19 Vaccine (1) COVID-19 Vaccine (1) [facility] Start: 1969 Hepatitis B vaccine (1 of 3 - 3-dose series) Hepatitis B vaccine (1 of 3 - 3-dose series) [facility] Start: 1969 Hepatitis C screening Hepatitis C screen [employer] Work Phone: End: 08-28-2019 Urine culture clean catch Urine culture clean catch Microbiology Routine Microscopic hematuria 1 Occurrences starting 08/28/2019 until 08/28/2019 [facility] [place] Comment on above: 1 Occurrences starting 08/28/2019 until 08/28/2019 Urine culture clean catch Urine culture clean catch Microbiology Routine Microscopic hematuria 08/28/2019 11:11 AM [facility] Date Payer Category Payer Unknown [facility] xxxxxxxxxxx 2016-Present [phone] CLAIMS DEPARTMENT [address] [place] [address] xxxxxxxxxxx [id number] 2014 Unknown [id number] 2014 Unknown [id number] 1969 Unknown [id number] 1969 Unknown [id number] 1969 Unknown [id number] 1969 Unknown [id number] 1969 Unknown [id number] 1969 Unknown [id number] Social History Date Type Detail Facility Start: 12-11-2018 End: 08-28-2019 Tobacco smoking status NHIS Never smoker [facility] [employer] Start: 08-28-2019 End: 05-22-2024 [facility] intake [email or web address] [place] Start: 1970 Sex Assigned At Not on file [place] Start: 08-28-2019 End: 05-22-2024 Alcohol intake Current non-drinker of alcohol (finding) [facility] [place] Start: 12-11-2018 End: 04-23-2021 Tobacco use and exposure Never used [employer] Exposure to SARS-CoV -2 (event) Not sure [employer] Start: 05-22-2024 History of Social function [facility] [employer] Evaluation note Note Date & Type Note Facility Evaluation note Diagnosis Menopause Symptomatic menopausal or female climacteric states documented in this encounter [employer] Phone: Evaluation note Note Date & Type Note Facility Evaluation note Diagnosis Screening breast examination Other screening breast examination documented in this encounter [email or web address] Phone: Evaluation note Note Date & Type Note Facility Evaluation note Diagnosis Acute pain of both knees documented in this encounter [facility] [employer] Phone: Evaluation note Note Date & Type Note Facility Evaluation note Diagnosis Cervicalgia documented in this encounter [email or web address] Phone: Evaluation note Note Date & Type Note Facility Evaluation note Diagnosis Bilateral hand pain Pain in limb documented in this encounter [email or web address] Phone: Evaluation note Note Date & Type Note Facility Evaluation note Diagnosis Breast cancer screening by mammogram documented in this encounter [facility] [employer] Evaluation note Note Date & Type Note Facility Evaluation note Diagnosis Pre-op testing Preoperative examination, unspecified Anemia, unspecified type documented in this encounter [employer] Diagnosis Microscopic hematuria Diagnosis Screening breast examination Other screening breast examination Advance Directives No Advanced Directives Records FoundDocuments on File Type Date Recorded Patient Cold Reduction Roller Expl anation Advance Directives and Living Will Power of Director Communications Documents on File Type Date Recorded Patient Cold Reduction Roller Expl anation Advance Directives and Living Will Power of Director Communications Documents on File Type Date Recorded Patient Cold Reduction Roller Expl anation ACP-Advance Directive ACP-Power of Director Communications Reason for Referral Status Reason Specialty Diagnoses / Procedures Referred By Contact Referred To Contact Authorized Radiology Diagnoses Screening breast examination Procedures THAD DIGITAL SCREEN W OR WO CAD BILATERAL Fruth, Shade [address] [facility] [address] [place] [id number] Status Reason Specialty Diagnoses / Procedures Referred By Contact Referred To Contact Open Radiology Diagnoses Menopause Procedures DEXA BONE DENSITY AXIAL SKELETON [facility] [place] [address] [place] [address] Specialty Diagnoses / Procedures Referred By Contac t Referred To Contact Radiology Diagnoses Screening breast examination Procedures THAD KIANNA DIGITAL SCREEN BILATERAL Fruth, Shade [address] [facility] [address] [place] [address] Referral ID Status Reason Start Date Expiration Date V isits Requested Visits Authorized [id number] Pending Review 04/27/2022 04/27/2023 1 1 Specialty Diagnoses / Procedures Referred By Contac t Referred To Contact Cardiology Diagnoses Pre-op testing Procedures EKG 12 Lead Vikki Davidson, E M [employer]SEM[employer] - [employer]ER [address] [facility] [address] [place] [address] Referral ID Status Reason Start Date Expiration Date Visits Re quested Visits Authorized [id number] Open 02/07/2024 02/06/2025 1 1 Summary Purpose Family History No Family History Records FoundNo Family History Records FoundNo Family History Records Found Additional Source Comments Reason for Visit (unrecogniz ed section and content) Status Reason Specialty Diagnoses / Procedures Referre d By Contact Referred To Contact Closed Radiology Diagnoses Encounter for screening mammogram for malignant neoplasm of breast Procedures HC MAMMO SCREENING INCL CAD IF PERF Fru, Shade [address] [address] [facility] [place] [address] [place] [address] Status Reason Specialty Diagnoses / Procedures Referred By Contact Referred To Contact Open Radiology Diagnoses Menopause Procedures DEXA BONE DENSITY AXIAL SKELETON [facility], [place] [address] [place] [address] Specialty Diagnoses / Procedures Referred By Contac t Referred To Contact Radiology Diagnoses Encounter for screening mammogram for malignant neoplasm of breast Procedures THAD KIANNA DIGITAL SCREEN BILATERAL Shade Gregg [address] [place] [address] [facility] [address] [place] [address] Referral ID Status Reason Start Date Expiration Date Visits Re quested Visits Authorized [id number] Open 04/27/2022 04/27/2023 1 1 Specialty Diagnoses / Procedures Referred By Contac t Referred To Contact Radiology Diagnoses Breast cancer screening by mammogram Procedures THAD KIANNA DIGITAL SCREEN SELF REFERRAL W OR WO CAD BILATERAL Shade Gregg [address] [place] [address] Referral ID Status Reason Start Date Expiration Date Visits Re quested Visits Authorized [id number] Closed 05/20/2023 05/19/2024 1 1 INFORMATION SOURCE (unrecogn ized section and content) DATE CREATED AUTHOR 12/09/2021 [facility] dical Specialist DATE CREATED AUTHOR AUTHOR'S ORGANIZ ATION 05/26/2024 [facility] DATE CREATED AUTHOR AUTHOR'S ORGANIZ ATION 06/29/2024 [facility] dical Specialists EPIC Care Teams (unrecognized sec tion and content) Slackline Operator Relationship Specialty Start Date End Date Shade Gregg PCP - General 08/28/19 Slackline Operator Relationship Specialty Start Date End Date Shade Gregg PCP - General 08/28/19 Slackline Operator Relationship Specialty Start Date End Date Shade Gregg PCP - General 08/28/19 Slackline Operator Relationship Specialty Start Date End Date Shade Gregg PCP - General 08/28/19 Slackline Operator Relationship Specialty Start Date End Date Shade anglinVIRGEN NP PCP - General 08/28/19 FOR RECORDS PERTAINING TO PATIENTS WHO ARE OR HAVE BEEN ENROLLED IN A CHEMICAL DEPENDENCY/SUBSTANCEABUSE PROGRAM, SOME INFORMATION MAY BE OMITTED. This clinical summary was aggregated from multiple sources. Caution should be exercised in using it in the provision of clinical care. This summary normalizes information from multiple sources, and as a consequence, information in this document may materially change the coding, format and clinical context of patient data. In addition, data may be omitted in some cases. CLINICAL DECISIONS SHOULD BE BASED ON THE PRIMARY CLINICAL RECORDS. [facility] [employer] [facility]. provides no warranty or guarantee of the accuracy or completeness of information in this document.
[2024-08-07 06:45] VITALS: BMI 39.0
[2024-08-07 07:07] LABS: HCG Qualitative NEGATIVE (NEGATIVE); Internal Control Within Normal Limits
[2024-08-07 07:09] VITALS: BP 130/80; PULSE 90; TEMP 36.3; O2SAT 99
[2024-08-07] MEDS: 0.9 % SODIUM CHLORIDE 500 ML 50 ML IV (07:10)
--- NOTE | 2024-08-07 07:59 | W.PM.PROCNOT ---
Date of procedure: 08/07/24 Pre-op diagnosis: screening colonoscopy Post-op diagnosis: other (sigmoid diverticulosis ) Procedure: Previous colonoscopy: 2019 procedure: screening colonoscopy The patient was given IV conscious sedation.? The patient's SPO2 remained above 90% throughout the procedure. The colonoscope was inserted per rectum and advanced under direct vision to the cecum without difficulty.? The prep was good.? Findings: Terminal ileum os: normal Cecum/Ascending colon: normal Transverse colon: normal Descending/Sigmoid colon: sigmoid diverticulosis Rectum/Anus: examined in normal and retroflexed positions and was normal Withdrawal Time was (minutes): 10 The colon was decompressed and the scope was removed.? The patient tolerated the procedure well. Recommendations/Plan: 1.? Lifestyle and dietary modifications as discussed 2.? F/U in 10 years for repeat c-scope 3.? Discussed with the family Anesthesia: MAC Surgeon: Omar Rodriguez Estimated blood loss (mL): 0 Pathology: none sent Condition: stable Disposition: PACU
[2024-08-07 08:25] VITALS: BP 102/49; PULSE 75; TEMP 36.8; O2SAT 95
[2024-08-07 08:40] VITALS: BP 115/79; PULSE 84; O2SAT 95
[2024-08-07 08:55] VITALS: BP 131/83; PULSE 84; TEMP 36.4; O2SAT 97
== END 2024-08-07 08:56 | disposition home or self-care (01) ==
PROVIDERS: Visit Provider Surgery
PROC: (CPT 812; principal; 2024-08-07 07:55)
DX: Z12.11 Encounter for screening for malignant neoplasm of colon (principal); K57.30 Diverticulosis of large intestine without perforation or abscess without bleeding; Z86.0100 Personal history of colon polyps, unspecified; Z80.0 Family history of malignant neoplasm of digestive organs; I10 Essential (primary) hypertension; K21.9 Gastro-esophageal reflux disease without esophagitis; E03.9 Hypothyroidism, unspecified
CPT/HCPCS: 45378; 36415; 84703; J2704